=== PATIENT | female | born 2000 | race Hispanic/Latino ===

== ENCOUNTER 2023-11-26 19:22 | Emergency (ER) | payer OTHER, SELFPAY ==
--- OUTSIDE RECORDS SUMMARY | 2023-11-26 19:26 | XMS REPORT | Continuity of Care Document ---
Author Name Unknown Address [address] [place] [address] [facility] thconnect Address [address] [place] [address] Care Team Providers Care Casing Operator Name Role Phone JESSICA WILDER Primary Care Physician TITA Fuchs Attending Clinician JESSICA Lewis Attending Clinician Darnell Avila, Ang-Rmchp Attending Clinician Jessica Holm Attending Clinician Osiel CRABTREE, Silverio Beaver Attending Clinician Cinthya garcia Doctor Unassigned, Amorita Attending Clinician U navailable Payers Payer Name Policy Type Policy Number Effective Date Expirati on Date Source [facility] [id number] 2021 00:00:00 MEDICAID PENDING PENDING 2021 00:00:00 Problems Condition Name Condition Details Condition Category Status Onset Date Resolution Date Last Treatment Date Treating Clinician Comments Source Primigravi da in first trimester Primigravi da in first trimester Disease Active 04-20 00:00: 00 [facility] Allergies, Adverse Reactions, Alerts Allergy Name Allergy Type Status Severity Reaction(s) Onset Date Inactive Date Treating Clinician Comments Source NO KNOWN ALLERGIE S Drug Class Active [facility] Social History Social Habit Start Date Stop Date Quantity Comments Source ASSERTION 2021-03-02 00:00:00 [facility] Exposure to SARS-CoV-2 (event) Not sure [facility] Alcohol intake 2021-05-11 00:00:00 2021-05-11 00:00:00 Ex-drinker (finding) [facility] Tobacco use and exposure 2021-04-20 00:00:00 2021-04-20 00:00:00 Never used [facility] Sex Assigned At 2000 00:00:00 2000 00:00:00 [facility] Smoking Status Start Date Stop Date Source Never smoker [facility] Medications Ordered Medication Name Filled Medication Name Start Date Stop Date Current Medication? Ordering Clinician Indication Dosage Frequency Signature (SIG) Comments Components Source No known medications 05-11 15:51: 09 No [facility] Encounters Start Date/Time End Date/Time Encounter Type Admission Type Attending Clinicians Care Facility Care Department Encounter ID Source 2021-06-03 09:00:00 2021-06-03 09:00:00 Outpatient JESSICA TURNER [facility] [id number] [facility] 2021-06-03 09:00:00 2021-06-03 09:00:00 Outpatient JESSICA TURNER [facility] [id number] [facility] 2021-05-18 10:30:00 2021-05-18 10:45:00 Women'S Soccer Coach Visit Lab, [facility] Jessica Wilder 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 [facility] [id number] [facility] 2021-05-18 10:30:00 2021-05-18 10:30:00 Outpatient JESSICA TURNER [facility] [id number] [facility] 2021-05-18 08:45:00 2021-05-18 08:45:00 Outpatient JESSICA TURNER [facility] [id number] [facility] 2021-05-18 08:45:00 2021-05-18 08:45:00 Outpatient JESSICA TURNER [facility] [id number] [facility] 2021-05-12 00:00:00 2021-05-12 00:00:00 Telephone Jessica Wilder 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 [facility] MATERNAL & CHILD [facility] [id number] [facility] 2021-05-11 13:45:00 2021-05-11 14:25:00 Outpatient R JESSICA WILDER [facility] [id number] [facility] 2021-05-11 13:45:00 2021-05-11 14:25:00 Routine Visit WilderJessica 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 [facility]ILD [facility] [id number] [facility] 2021-04-27 00:00:00 2021-04-27 00:00:00 Telephone WilderJessica 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 [facility]ILD [facility] [id number] [facility] 2021-04-22 00:00:00 2021-04-22 00:00:00 Nurse Triage Silverio Cartagena [facility] [id number] [id number] [facility] 2021-04-22 00:00:00 2021-04-22 00:00:00 Telephone WilderJessica 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 [facility]ILD [facility] [id number] [facility] 2021-04-20 09:00:00 2021-04-20 10:32:40 Initial Visit Jessica Wilder 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 [facility] 1..840.114 [id number] [facility] 2021-04-20 09:00:00 2021-04-20 10:32:40 Outpatient JESSICA TURNER [facility] [id number] [facility] 2021-04-20 09:00:00 2021-04-20 10:32:40 Outpatient JESSICA TURNER [facility] [id number] [facility] 2021-04-20 00:00:00 2021-04-20 00:00:00 Orders Only Doctor Unassigned, Amorita [facility] 1..840.114 [id number] [id number] [facility]
[2023-11-26 20:21] LABS: Absolute Basophils 0.1 K/uL (0-0.5); Absolute Lymphocytes (CBC) 1.8 K/uL (0.7-4.9); Absolute Monocytes 0.8 K/uL (0.1-1.3); Absolute Neutrophil 9.4 K/uL (1.8-8.0); Basophils % 0.5 % (0-1.3); Eosinophils % 0.1 % (0-4.4); Hemoglobin 13.8 g/dL (12.0-15.0); Lymphocytes % 14.9 % (15.3-44.8); MCH 30.8 pg (27.0-35.0); MCHC 32.9 g/dL (32.0-36.0); MCV 93.5 fL (80-100); MPV 10.7 fL (7.6-11.3); Monocytes % 6.8 % (3.3-12.3); Neutrophils % 77.7 % (41.7-73.7); Nucleated Red Blood Cells % 0.1 % (0-0); Platelets 310 thou/uL (152-406); RBC Red Blood Cell Count 4.49 M/uL (3.86-4.86); Red Cell Distribution Width 13.4 % (12.1-15.2)
[2023-11-26 20:25] LABS: Specific Gravity > 1.030 (1.005-1.030); Sqamous Epithelial <5 /HPF (None Seen); Urine Bacteria <20 /HPF (<20); Urine Bilirubin NEGATIVE (Negative); Urine Blood Trace (Negative); Urine Clarity Clear (Clear); Urine Color Yellow (Yellow); Urine Culture Reflex Order NOT NEEDED; Urine Glucose NEGATIVE (Negative); Urine Ketones 4+ (Over) (Negative); Urine Microscopic Reflex YN ORDER UMIC; Urine Mucus 1+ /HPF (None Seen); Urine Nitrite NEGATIVE (Negative); Urine Protein 1+ (Negative); Urine RBC <5 /HPF (None Seen); Urine Urobilinogen 1+ (Normal); Urine WBC <5 /HPF (<5); Urine pH 5.5 (5.0-7.0)
[2023-11-26 20:54] LABS: Anion Gap 14.7 mEq/L (5.0-15.0); Potassium 3.7 mEq/L (3.5-5.1)
[2023-11-26] MEDS ORDERED: Ringers Lactate 1,000 ML IV ONE (21:21)
--- NOTE | 2023-11-26 21:52 | RAD REPORT ---
EXAMINATION: Transvaginal OB COMPARISON: None. HISTORY: [facility] MAIN ABD PAIN Bed Name: 19 TECHNIQUE: Real-time ultrasound was performed through the pelvis. A transvaginal scan was performed t o better visualize the intrauterine contents and adnexa. FINDINGS: There is a single living intrauterine seen in the right aspect of the fundus. Small yolk sa c is visualized. heart rate: 127 bpm. There is no visible subchorionic hemorrhage. Both ovaries are visualized and appear unremarkable, with the exception of a 2.4 cm dominant cyst of the left ovary.. There is no free fluid in the cul-de-sac. Measurements and Calculations: Gully rump length measures 3.1 mm, consistent with a sonographic age of 5 weeks, 6 days. The patient' s LMP dates are not stated. IMPRESSION: Single living intrauterine , with a composite sonographic age of 5 weeks, 6 days.
--- NOTE | 2023-11-26 23:13 | ER ---
Nurse's Notes [facility] Name: Janet Wall Age: 22 yrs Sex: Female : 2000 Arrival Date: 11/26/2023 Time: 19:22 Bed 19 Private MD: Diagnosis: Other specified related conditions, first trimester;Nausea with vomiting, unspecified Presentation: 11/25 19:44 Chief complaint: Patient states: feels hot and nauseated, throbbing in stomach , unable iw to keep anything down since Monday , pain is under her ribs , is approx 6-7 weeks . Coronavirus screen: At this time, the client does not indicate any symptoms associated with coronavirus-19. Ebola Screen: No symptoms or risks identified at this time. Initial Sepsis Screen: Does the patient meet any 2 criteria? No. Patient's initial sepsis screen is negative. Does the patient have a suspected source of infection? No. Patient's initial sepsis screen is negative. Risk Assessment: Do you want to hurt yourself or someone else? Patient reports no desire to harm self or others. Onset of symptoms was November 24, 2023. 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 - Infectious Disease History:: Denies. - Social history:: Smoking status: . Screenin:57 [facility] ED Fall Risk Assessment (Adult) History of falling in the last 3 months, cp4 including since admission No falls in past 3 months (0 pts) Confusion or Disorientation No (0 pts) Intoxicated or Sedated No (0 pts) Impaired Gait No (0 pts) Mobility Assist Device Used No (0 pt) Altered Elimination No (0 pt) Score/Fall Risk Level 0 - 2 = Low Risk Oriented to surroundings, Maintained a safe environment, Assessed \T\ reinforced patient's understanding of fall precautions, Hourly rounding (assess needs \T\ fall precautionary measures) done. Abuse screen: Denies threats or abuse. Nutritional screening: No deficits noted. Tuberculosis screening: No symptoms or risk factors identified. Assessment: 19:57 General: Appears in no apparent distress. uncomfortable, Behavior is calm, cooperative, cp4 appropriate for age. Pain: Complains of pain in abdomen Pain does not radiate. Pain currently is 6 out of 10 on a pain scale. Neuro: Level of Consciousness is awake, alert, obeys commands, Oriented to person, place, time, situation. Cardiovascular: Patient's skin is warm and dry. Respiratory: Airway is patent Respiratory effort is even, unlabored. GI: Abdomen is flat, non-distended, Bowel sounds present X 4 quads. Abd is soft and non tender X 4 quads. Reports nausea, vomiting. : No signs and/or symptoms were reported regarding the genitourinary system. EENT: No signs and/or symptoms were reported regarding the EENT system. Derm: No signs and/or symptoms reported regarding the dermatologic system. Musculoskeletal: No signs and/or symptoms reported regarding the musculoskeletal system. Vital Signs: 19:44 BP 126 / 81; Pulse 106; Resp 16; Temp 99.1; Pulse Ox 100% on R/A; Weight 68.04 kg; iw Height 5 ft. 7 in. ; Pain 5/10; 22:00 BP 101 / 50; Pulse 95; Resp 16; Pulse Ox 99% ; cp4 23:28 BP 104 / 50; Pulse 94; Resp 16; Pulse Ox 100% ; cp4 19:44 Body Mass Index 23.49 (68.04 kg, 170.18 cm) iw 19:44 Pain Scale: Adult iw ED Course: 19:26 Patient arrived in ED. gm2 19:28 Rj Miller PA is PHCP. cp 19:28 Cresencio Polanco MD is Attending Physician. cp 19:45 Triage completed. iw 19:46 Arm band placed on. iw 19:56 Meena Cyr is Primary Nurse. cp4 19:56 Inserted saline lock: 20 gauge in left antecubital area, using aseptic technique. Blood ha1 collected. Flushed with 10 mL NS. 19:57 Bed in low position. Call light in reach. Side rails up X2. cp4 20:05 Initial lab(s) drawn, by me, sent to lab. Urine collected: clean catch specimen, clear. cp4 21:37 Transvaginal Ob In Process Unspecified. EDMS 23:30 Provided Education on: nausea and . cp4 23:30 No provider procedures requiring assistance completed. intact, bleeding controlled, No cp4 redness/swelling at site. Pressure dressing applied. Administered Medications: 21:24 Drug: Lactated Ringers Solution IV 1000 ml IV at 500 ml/hr continuous Route: IV; Rate: cp4 500 ml/hr; Site: left antecubital; 23:31 Follow up: IV Status: Completed infusion cp4 Medication: 19:57 VIS not applicable for this client. cp4 Outcome: 23:13 Discharge ordered by MD. cp 23:30 Discharged to home ambulatory, cp4 23:30 Condition: stable 23:30 Discharge instructions given to patient, Instructed on discharge instructions, follow up and referral plans. medication usage, Demonstrated understanding of instructions, follow-up care, medications, Prescriptions given X 2, 23:31 Patient left the ED. cp4 Signatures: Dispatcher [employer] EDMS Evette Lucas RN RN iw Rj Miller PA PA cp Марина Gorman RN RN Meena Martinez cp4 Letty Waters 2 Corrections: (The following items were deleted from the chart) 19:46 19:44 Chief complaint: Patient states: feels hot and nauseated, throbbing in stomach , iw unable to keep anything down since Vaibhav , pain is under her ribs iw
--- NOTE | 2023-11-26 23:13 | EDPHYS ---
Physician Documentation [facility] Name: Janet Wall Age: 22 yrs Sex: Female : 2000 Arrival Date: 11/26/2023 Time: 19:22 Bed 19 Private MD: ED Physician Cresencio Polanco HPI: 11/25 20:00 This 22 yrs old Female presents to ER via Ambulatory with complaints of cp Nausea/Vomiting, Abdominal Cramping, 6 weeks . 20:00 The patient presents to the emergency department with nausea, that is moderate, cp vomiting, that is continuous, described as bilious, abdominal pain, of the upper abdomen, and does not radiate. Onset: The symptoms/episode began/occurred 2 day(s) ago. Possible causes: . Associated signs and symptoms: Pertinent positives: anorexia, Pertinent negatives: constipation, diarrhea, fever, vaginal bleeding. Severity of symptoms: in the emergency department the symptoms are unchanged despite home interventions. 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 - Infectious Disease History:: Denies. - Social history:: Smoking status: . ROS: 20:05 Constitutional: Positive for poor PO intake, Negative for body aches, chills, fever, cp 20:05 Eyes: Negative for injury, pain, redness, and discharge, cp 20:05 ENT: Negative for drainage from ear(s), ear pain, sore throat, difficulty swallowing, difficulty handling secretions, 20:05 Respiratory: Negative for cough, shortness of breath, wheezing, 20:05 Abdomen/GI: Positive for abdominal pain, nausea and vomiting, anorexia, Negative for diarrhea, constipation, hematemesis, 20:05 Back: Negative for radiated pain, 20:05 Neuro: Negative for altered mental status, dizziness, headache, weakness, 20:05 All other systems are negative, Exam: 20:10 Constitutional: The patient appears in no acute distress, alert, awake, non-toxic, well cp developed, well nourished, 20:10 Head/Face: Normocephalic, atraumatic. cp 20:10 Eyes: Periorbital structures: appear normal, Conjunctiva: normal, no exudate, no injection, Sclera: no appreciated abnormality, Lids and lashes: appear normal, bilaterally, 20:10 ENT: External ear(s): are unremarkable, Nose: is normal, Mouth: Lips: moist, Oral mucosa: pink and intact, moist, Posterior pharynx: Airway: no evidence of obstruction, patent, 20:10 Chest/axilla: Inspection: normal, 20:10 Cardiovascular: Rate: tachycardic, Rhythm: regular, 20:10 Respiratory: the patient does not display signs of respiratory distress, Respirations: normal, no use of accessory muscles, no retractions, labored breathing, is not present, Breath sounds: are clear throughout, no stridor, no wheezing, 20:10 Abdomen/GI: Inspection: abdomen appears normal, Bowel sounds: active, all quadrants, Palpation: soft, in all quadrants, mild abdominal tenderness, in the right upper quadrant and left upper quadrant, rebound tenderness, is not appreciated, involuntary guarding, is not appreciated, 20:10 Back: CVA tenderness, is absent, 20:10 Neuro: Orientation: to person, place \T\ time. Mentation: is normal, Motor: moves all fours, strength is normal, Gait: is steady, Vital Signs: 19:44 BP 126 / 81; Pulse 106; Resp 16; Temp 99.1; Pulse Ox 100% on R/A; Weight 68.04 kg; iw Height 5 ft. 7 in. ; Pain 5/10; 22:00 BP 101 / 50; Pulse 95; Resp 16; Pulse Ox 99% ; cp4 23:28 BP 104 / 50; Pulse 94; Resp 16; Pulse Ox 100% ; cp4 19:44 Body Mass Index 23.49 (68.04 kg, 170.18 cm) iw 19:44 Pain Scale: Adult iw MDM: 19:50 Patient medically screened. cp 20:00 Differential diagnosis: gastritis, cholecystitis, pancreatitis, appendicitis, viral cp gastroenteritis, gastroenteritis. 23:12 Data reviewed: vital signs, nurses notes, lab test result(s), radiologic studies, cp ultrasound, and as a result, I will discharge patient. 23:12 I considered the following discharge prescriptions or medication management in the emergency department Medications were administered in the Emergency Department. See MAR. Counseling: I had a detailed discussion with the patient and/or guardian regarding the historical points, exam findings, and any diagnostic results supporting the discharge/admit diagnosis, lab results, radiology results, to return to the emergency department if symptoms worsen or persist or if there are any questions or concerns that arise at home. Response to treatment: the patient's symptoms have markedly improved after treatment, and as a result, I will discharge patient. ED course: nausea and pain markedly improved, vomiting resolved. will discharge to home for continued monitoring. 11/25 19:50 Order name: Abo/rh Typing; Complete Time: 21:13 11/25 22:51 Interpretation: Reviewed. 11/25 19:50 Order name: Basic Metabolic Panel; Complete Time: 21:14 11/25 21:13 Interpretation: Normal except: NA 134; CO2 19. cp 11/25 19:50 Order name: CBC with Diff; Complete Time: 21:13 11/25 19:50 Order name: Test, Urine; Complete Time: 21:13 cp 11/25 19:50 Order name: Quantitative Hcg; Complete Time: 21:14 cp 11/25 19:50 Order name: Urinalysis w/ reflexes; Complete Time: 21:13 11/25 22:50 Interpretation: Normal except: Urine SG > 1.030; UKET 4+ (Over); UBLD Trace; UPROT 1+; cp UUROB 1+. 11/25 19:50 Order name: Lipase; Complete Time: 21:14 11/25 21:13 Order name: US Transvaginal Ob; Complete Time: 22:50 cp 11/25 19:50 Order name: IV Saline Lock; Complete Time: 19:56 cp 11/25 19:50 Order name: Labs collected and sent; Complete Time: 20:05 cp 11/25 19:50 Order name: NPO; Complete Time: 20:05 11/25 23:11 Order name: PO challenge; Complete Time: 23:14 cp Administered Medications: 21:24 Drug: Lactated Ringers Solution IV 1000 ml IV at 500 ml/hr continuous Route: IV; Rate: cp4 500 ml/hr; Site: left antecubital; 23:31 Follow up: IV Status: Completed infusion cp4 Disposition Summary: 11/26/23 23:13 Discharge Ordered Notes: Location: Home cp Problem: new cp Symptoms: have improved cp Condition: Stable cp Diagnosis - Other specified related conditions, first trimester cp - Nausea with vomiting, unspecified cp Followup: cp - With: Private Physician - When: 2 - 3 days - Reason: Recheck today's complaints Discharge Instructions: - Discharge Summary Sheet cp - Abdominal Pain During cp - Nausea and Vomiting, Adult cp - First Trimester of cp Forms: - Medication Reconciliation Form cp - Antibiotic Education cp - Prescription Opioid Use cp - Patient Portal Instructions cp - Leadership Thank You Letter cp Prescriptions: - 114-iron a-g-folate 1 20 mg iron- 1 mg Oral tablet - take 1 tablet ORAL route every morning; 60 tablet; Refills: 0, Product cp Selection Permitted - Zofran 4 mg Oral Tablet - take 1 tablet ORAL route every 12 hours As needed; 20 tablet; Refills: 0, cp Product Selection Permitted Addendum: 11/29/2023 09:45 I was immediately available for consultation during this patient's visit. I did not e c2 personally see the patient or discuss the patient with the LAKISHA. . Signatures: Dispatcher [employer] Evette Leigh RN RN iw Rj Miller PA PA cp Cresencio Polanco MD MD ec2 Meena Cyr cp4 Corrections: (The following items were deleted from the chart) 11/25 19:51 19:51 ABO/RH TYPING+BB.LAB.BRZ ordered. EDMS EDMS 19:51 19:51 BASIC METABOLIC PANEL+C.LAB.BRZ ordered. EDMS EDMS 19:51 19:51 CBC+H.LAB.BRZ ordered. EDMS EDMS 19:51 19:51 Test, Urine+UC.LAB.BRZ ordered. EDMS EDMS 19:51 19:51 QUANTITATIVE HCG+C.LAB.BRZ ordered. EDMS EDMS 19:51 19:51 Urinalysis+U.LAB.BRZ ordered. EDMS EDMS 19:51 19:51 LIPASE+C.LAB.BRZ ordered. EDMS EDMS
[2023-11-26 23:38] VITALS: TEMP 99.1
[2023-11-26 23:39] VITALS: BP 104/50; O2SAT 100
== END 2023-11-26 23:31 | disposition home or self-care (01) ==
LOC: ER 19:22
DX: O26.891 Other specified pregnancy related conditions, first trimester (principal); R11.2 Nausea with vomiting, unspecified; Z3A.01 Less than 8 weeks gestation of pregnancy
CPT/HCPCS: 36415; 76817; 80048; 81001; 81025; 83690; 84702; 85025; 86900; 86901; 96360; 96361; 99284; J7120